=== PATIENT | female | born 1955 | race Caucasian/White ===

== ENCOUNTER 2017-01-09 08:09 | Day surgery (SDC) | payer MEDICARE ==
--- NOTE | ~2017-01-09 | EGD ---
EGD REPORT [facility] [address] [address] NAME: QUANG CASTRO : 55 STATUS : REG [facility] [place] PAT#: [id number] AGE: 61 ADM/REG DATE : 01/09/17 MR#: [id number] REPORT SERV DATE: 01/09/17 DICTATED BY: DONN BETTS. DATE: 01/09/17 REPORT STATUS : Draft TRANSCRIBED BY: [facility] [place] [facility] DATE: 01/09/17 [facility] Patient Name: Quang Castro Date of : 1955 Attending MD: DONN BETTS MD Procedure Date No Time: 01/09/2017 Procedure: Colonoscopy Indications: High risk colon cancer surveillance: Personal history of non-advanced adenoma; last exam 2011. Patient Profile: Informed consent was obtained from the patient by me prior to the procedure. Risks, benefits, and alternatives were discussed including the risk of bleeding, perforation, infection, reaction to medicine, missed lesion, and cardiopulmonary complications. Referring MD: KIN DUQUE Medicines: Monitored Anesthesia Care Complications: No immediate complications. Procedure: Pre-Anesthesia Assessment: - ASA Grade Assessment: III - A patient with severe systemic disease. After I obtained informed consent, the scope was passed under direct vision. Throughout the procedure, the patient's blood pressure, pulse, and oxygen saturations were monitored continuously. The PCF [id number] was introduced through the anus and advanced to the cecum, identified by appendiceal orifice and ileocecal valve. The colonoscope was slowly withdrawn with careful examination all mucosal surfaces including specific attention around flexures and tip deflection behind folds; retroflexion performed in rectum. The colonoscopy was performed without difficulty. The patient tolerated the procedure well. The quality of the bowel preparation was adequate. The ileocecal valve, appendiceal orifice and rectum were photographed. Findings: A sessile polyp was found in the descending colon. The polyp was 5 mm in size. The polyp was removed with a cold biopsy forceps. Resection and retrieval were complete. A sessile polyp was found in the sigmoid colon. The polyp was 5 mm in size. The polyp was removed with a cold biopsy forceps. Resection and retrieval were complete. A sessile polyp was found in the rectum. The polyp was 5 mm in size. The polyp was removed with a cold biopsy forceps. Resection and retrieval were complete. EGD REPORT [address] [address] NAME: QUANG CASTRO : 55 STATUS : REG [facility]#: [id number] AGE: 61 ADM/REG DATE : 01/09/17 MR#: [id number] REPORT SERV DATE: 01/09/17 DICTATED BY: DONN BETTS DATE: 01/09/17 REPORT STATUS : Draft TRANSCRIBED BY: [employer] DATE: 01/09/17 Multiple medium-mouthed diverticula were found in the sigmoid colon, in the descending colon and in the transverse colon. Impression: - One 5 mm polyp in the descending colon. Resected and retrieved. - One 5 mm polyp in the sigmoid colon. Resected and retrieved. - One 5 mm polyp in the rectum. Resected and retrieved. - Diverticulosis in the sigmoid colon, in the descending colon and in the transverse colon. Recommendation: - Patient has a contact number available for emergencies. The signs and symptoms of potential delayed complications were discussed with the patient. Return to normal activities tomorrow. Written discharge instructions were provided to the patient. - Regular diet. - Continue present medications. - Await pathology results. - Repeat colonoscopy for surveillance based on pathology results. Procedure Code(s): --- Professional --- 31857, Colonoscopy, flexible, proximal to splenic flexure; with biopsy, single or multiple Diagnosis Code(s): --- Professional --- K62.1, Rectal polyp D12.5, Benign neoplasm of sigmoid colon D12.4, Benign neoplasm of descending colon K57.30, Diverticulosis of large intestine without perforation or abscess without bleeding Z86.010, Personal history of colonic polyps CPT copyright 2013 [employer]. All rights reserved. The codes documented in this report are preliminary and upon clerk specialist review may be revised to meet current compliance requirements. DONN BETTS MD 01/09/2017 10:19 AM This report has been signed electronically. Number of Addenda: 0 Note Initiated On: 01/09/2017 9:25 AM EGD REPORT [facility] [address] [address] NAME: QUANG CASTRO : 55 STATUS : REG [facility] [place] PAT#: [id number] AGE: 61 ADM/REG DATE : 01/09/17 MR#: [id number] REPORT SERV DATE: 01/09/17 DICTATED BY: DONN BETTS DATE: 01/09/17 REPORT STATUS : Draft TRANSCRIBED BY: [employer] DATE: 01/09/17 Scope Withdrawal Time 0 hours 22 minutes 11 seconds [address] [id number]
--- NOTE | ~2017-01-09 | EGD ---
EGD REPORT [facility] [address] [address] NAME: QUANG CASTRO : 55 STATUS : [place] [facility] [place] [facility] [place] PAT#: [id number] AGE: 61 ADM/REG DATE : 01/09/17 MR#: [id number] REPORT SERV DATE: 01/09/17 DICTATED BY: DONN BETTS DATE: 01/09/17 REPORT STATUS : Draft TRANSCRIBED BY: [facility] DATE: 01/09/17 Endoscopy Center Patient Name: Quang Castro Date of : 1955 Attending MD: DONN BETTS MD Procedure Date No Time: 01/09/2017 Procedure: Upper GI endoscopy Indications: Dysphagia, Heartburn; Zantac 150mg daily. Patient Profile: Informed consent was obtained from the patient by me prior to the procedure. Risks, benefits, and alternatives were discussed including the risk of bleeding, perforation, infection, reaction to medicine, missed lesion, and cardiopulmonary complications. Referring MD: KIN DUQUE Medicines: Monitored Anesthesia Care Complications: No immediate complications. Procedure: Pre-Anesthesia Assessment: - ASA Grade Assessment: III - A patient with severe systemic disease. - After reviewing the risks and benefits, the patient was deemed in satisfactory condition to undergo the procedure. After obtaining informed consent, the endoscope was passed under direct vision. Throughout the procedure, the patient's blood pressure, pulse, and oxygen saturations were monitored continuously. The GIF H190 [id number] was introduced through the mouth, and advanced to the third part of duodenum. The endoscope was withdrawn with careful examination all mucosal surfaces including retroflexion stomach. The upper GI endoscopy was accomplished without difficulty. The patient tolerated the procedure well. Findings: The 3rd part of the duodenum was normal. The first part of the duodenum and 2nd part of the duodenum were normal. Biopsies were taken with a cold forceps for histology. The entire examined stomach was normal. The examined esophagus was normal. Biopsies were taken with a cold forceps for histology from mid and upper. 48F Savary dilation performed over guidewire held in antrum; minimal resistance to dilation; endoscopic visualization afterwards no mucosal breaks. The esophagus and gastroesophageal junction were examined with white light. There was no visual evidence of Ruano's esophagus. EGD REPORT [address] [place]. [address] NAME: QUANG CASTRO : 55 STATUS : [place] [facility] [place] [place] PAT#: [id number] AGE: 61 ADM/REG DATE : 01/09/17 MR#: [id number] REPORT SERV DATE: 01/09/17 DICTATED BY: DONN BETTS DATE: 01/09/17 REPORT STATUS : Draft TRANSCRIBED BY: [employer] DATE: 01/09/17 Impression: - Normal 3rd part of the duodenum. - Normal first part of the duodenum and 2nd part of the duodenum. Biopsied. - Normal stomach. - Normal esophagus. Biopsied. Dilated. - There is no endoscopic evidence of Ruano's esophagus. Recommendation: - Patient has a contact number available for emergencies. The signs and symptoms of potential delayed complications were discussed with the patient. Return to normal activities tomorrow. Written discharge instructions were provided to the patient. - Regular diet. - Continue present medications. - Await pathology results. - Zantac 150mg bid prn. Procedure Code(s): --- Professional --- 48614, Esophagogastroduodenoscopy, flexible, transoral; with insertion of guide wire followed by passage of dilator(s) through esophagus over guide wire 66341, Esophagogastroduodenoscopy, flexible, transoral; with biopsy, single or multiple Diagnosis Code(s): --- Professional --- R13.10, Dysphagia, unspecified R12, Heartburn CPT copyright 2013 [employer]. All rights reserved. The codes documented in this report are preliminary and upon director of child welfare services review may be revised to meet current compliance requirements. DONN BETTS MD 01/09/2017 9:45 AM This report has been signed electronically. Number of Addenda: 0 Note Initiated On: 01/09/2017 9:24 AM Scope Withdrawal Time 0 hours 0 minutes 0 seconds [id number] [id number]
[~2017-01-09 08:09] MED LIST: ALIGN PO; ASAB PO; B COMPLEX-C OR; CALTRA600D PO; CELEXA10 PO; COZ25 PO; DIOVAN40 MG PO; KEPPRA500 PO; PVC V; RESTORIL30 MG PO; SINGULAIR1 PO; VITAMIN D31000 UNIT PO; VITC500 PO; ZANTAC 150 PO
== END 2017-01-09 23:59 | disposition home or self-care (01) ==
LOC: DMU 08:09
PROVIDERS: Internal Medicine Gastroenterology
PROC: 0DBN8ZZ Excision of Sigmoid Colon, Via Natural or Artificial Opening Endoscopic (ICD-10-PCS; 2017-01-09)
PROC: 0DBP8ZZ Excision of Rectum, Via Natural or Artificial Opening Endoscopic (ICD-10-PCS; 2017-01-09)
PROC: 0DB28ZX Excision of Middle Esophagus, Via Natural or Artificial Opening Endoscopic, Diagnostic (ICD-10-PCS; principal; 2017-01-09 09:30)
PROC: 0DB58ZX Excision of Esophagus, Via Natural or Artificial Opening Endoscopic, Diagnostic (ICD-10-PCS; 2017-01-09 09:30)
PROC: 0DB78ZX Excision of Stomach, Pylorus, Via Natural or Artificial Opening Endoscopic, Diagnostic (ICD-10-PCS; 2017-01-09 09:30)
DX: Z12.11 Encounter for screening for malignant neoplasm of colon (principal); K62.1 Rectal polyp; K63.5 Polyp of colon; D12.4 Benign neoplasm of descending colon; R13.10 Dysphagia, unspecified; R12 Heartburn; I48.91 Unspecified atrial fibrillation; G47.33 Obstructive sleep apnea (adult) (pediatric); I10 Essential (primary) hypertension; G40.909 Epilepsy, unspecified, not intractable, without status epilepticus; Z90.710 Acquired absence of both cervix and uterus; Z98.890 Other specified postprocedural states; Z98.51 Tubal ligation status; F32.9 Major depressive disorder, single episode, unspecified; K58.9 Irritable bowel syndrome, unspecified; K64.9 Unspecified hemorrhoids; K44.9 Diaphragmatic hernia without obstruction or gangrene; I49.9 Cardiac arrhythmia, unspecified; Z90.89 Acquired absence of other organs; R41.3 Other amnesia; Z86.73 Personal history of transient ischemic attack (TIA), and cerebral infarction without residual deficits; Z88.5 Allergy status to narcotic agent; Z91.040 Latex allergy status; Z79.899 Other long term (current) drug therapy
CPT/HCPCS: 88305